=== PATIENT | female | born 1945 | race Caucasian/White ===

== ENCOUNTER 2016-06-10 08:13 | Day surgery (SDC) | payer MEDICARE, OTHER ==
[~2016-06-10] VITALS: Ht 170.2 cm; Wt 86.2 kg
[2016-06-10 09:05] LABS: HEMATOCRIT 49.1 % (36.0-48.0); HEMOGLOBIN 16.4 g/dL (12-16); MCH 31.8 pg (26.0-34.0); MCHC 33.4 g/dL (31.0-37.0); MCV 95.3 fL (80.0-100.0); RBC 5.15 10x6/uL (4.00-5.40); RDW 12.5 % (11.5-14.5); WBC 7.3 10x3/uL (4.8-10.8)
[2016-06-10] MEDS ORDERED: GLUCOPHAGE1000 MG PO (09:16)
[2016-06-10] MEDS ORDERED: PRAVACHOL40 MG PO (09:17)
[2016-06-10] MEDS ORDERED: GLIMEPIRIDE2 MG PO (09:17)
[2016-06-10] MEDS ORDERED: BAYER CHEWABLE81 MG PO (09:18)
[2016-06-10 09:29] VITALS: BP 100/56; Ht 170.2 cm; Wt 86.2 kg
[2016-06-10 09:59] LABS: ANION GAP 17.3 mmol/L (8-16); CALCIUM 9.8 mg/dL (8.5-10.1); CARBON DIOXIDE 21.9 mmol/L (21.0-32.0); CREATININE - SERUM 0.9 mg/dL (0.6-1.3); POTASSIUM - SERUM 4.2 mmol/L (3.5-5.1)
--- NOTE | 2016-06-10 11:30 | NUR ---
PATIENT LEFT ON STRETCHER FOR PROCEDURE, DARK AREAS NOTED ON BUTTOCKS WITH SOME SMALL SCRATCY SCABBY AREA ON LEFT BUTTOCK, ROULA.
--- NOTE | 2016-06-10 14:46 | NUR ---
1400-PT. ESCORTED VIA WHEELCHAIR TO PERSONAL CAR, LEFT WITH FAMILY DRIVING.
--- NOTE | 2016-07-27 10:17 | HP ---
PATIENT: ADILSON MOSQUEDA MEDICAL RECORD: [id number] ACCOUNT: [id number] LOCATION:[facility] : 43 ADMISSION DATE: 06/10/16 HISTORY AND PHYSICAL EXAMINATION CHIEF COMPLAINT: Polyp. I have personally reviewed the endoscopic photos. I have personally reviewed the endoscopic report. I do not have a pathology report. We are unable to obtain one. The worrisome polyp is a sessile polyp on a fold that is 4-5 cm in length and wraps around the fold. Cold biopsies were obtained. The area was then tattooed. It was felt to be too large for routine endoscopic removal. I am going to plan for a polypectomy utilizing the argon plasma rose grower. The risks, possible complications and alternatives to procedure were explained to the patient. She elects to proceed. Unfortunately, although she was ready to have this procedure done, it escaped everybody that she had not signed her consent form prior to the procedure. The nurse went out and talked to family and they signed the form. SOCIAL HISTORY: She is a smoker. I have advised her to quit smoking. PAST MEDICAL HISTORY AND PAST SURGICAL HISTORY: Sleep apnea, not on CPAP, noninsulin-dependent diabetes mellitus, colon polyp, and hyperlipidemia. HOME MEDICATIONS: Aspirin, Amaryl, Glucophage, and Pravachol. ALLERGIES: No known drug allergies. REVIEW OF SYSTEMS: Negative for coronary artery disease or hypertension. Negative for CVA or seizures. Negative for renal disease or hepatitis. The review of systems is negative other than as is described above. PHYSICAL EXAMINATION: GENERAL: The patient does not appear acutely ill. She does not appear chronically ill. VITAL SIGNS: Reviewed. HEAD: External ears appear normal. EYES: Extraocular movements are intact. NECK: Trachea is midline. CHEST: No intercostal retractions. PULMONARY: Nonlabored, no stridor. ABDOMEN: No peritonitis with movement. IMPRESSION: A worrisome polyp of the mid descending colon, complex due to its size and its location. PLAN: Colonoscopy, polypectomy utilizing the argon plasma rose grower. TRANSINT:[id number] Voice Confirmation ID: [id number] DOCUMENT ID: [id number] HISTORY AND PHYSICAL [id number] ADILSON MOSQUEDAGIOVANA HANCOCK MD at 1017 CC: CLAIR KHAN DO and ANTONIO ZAMAN MD [id number] DICTATION DATE: 06/10/16 1222 DEGREASING WHEEL OPERATOR: 06/10/16 1238 [facility] 06/10/16 [address] [address] [place] [address]
--- NOTE | 2016-07-27 10:17 | OP ---
PATIENT NAME: ADILSON MOSQUEDA MEDICAL RECORD: [id number] :43 LOCATION:D.OPS ADMISSION DATE: SURGEON: GIOVANA CROSS MD DATE OF OPERATION: 06/10/2016 PREOPERATIVE DIAGNOSIS: Right-sided colon polyp, 4-5 cm, complex due to its size and its location. POSTOPERATIVE DIAGNOSIS: Right-sided colon polyp, 4-5 cm, complex due to its size and its location. PROCEDURES: 1. Total colonoscopy to cecum. 2. Snare polypectomy and then multiple cold biopsies were obtained of the residual polypoid tissue. I then ablated any residual polypoid tissue with the argon plasma driver trainee. Placement of 4 endoscopic clips for vascular hemostasis as well as to close a submucosal defect. OPERATIVE COURSE: The patient was conveyed to the operating room electively on 06/10/2016. General anesthesia was induced by the anesthesia staff. The patient was placed in the Flores position. A digital rectal examination was performed. The colonoscope was inserted through the anus. It was easily advanced to the cecum. The prep was adequate. The pullback was greater than a 14-minute pullback. I dragged the folds. I irrigated and aspirated extensively. In the mid ascending colon, the polyp was easily identifiable. I advanced a snare wrapped it around the polyp and performed a snare polypectomy. This removed about 90% of the polyp and the remaining 10% of the polypoid tissue at the base. I performed cold endoscopic biopsy. The patient was left with not a full thickness defect, but the mucosa had been removed and perhaps some of the submucosa. For this reason, the area was weak. There was also bleeding to some degree. I ablated the remaining polypoid tissue with the argon plasma driver trainee. I then began to lay out down a row of clips to close this defect, which is at risk for developing into a full thickness perforation. I tried to lay down a row of 7 clips. Unfortunately, because it was on fold, it was difficult to obtain some purchase with some these clips. So a total of 4 of these clips were placed and this is largely closed the defect that I described. An endoscopic retrieval device was advanced. I grasped the polyp. It was then withdrawn slowly out through the anus. Upon withdrawal, I noted no other polypoid lesions. The patient was then extubated and conveyed to post-anesthesia care unit, where she was in stable condition. She going to be dismissed home while on Flagyl as she is at a risk for a post-polypectomy syndrome. I will see her in the office in 2-3 weeks. TRANSINT:[id number] Voice Confirmation ID: [id number] DOCUMENT ID: [id number] OPERATIVE REPORT [id number] ADILSON MOSQUEDA, GIOVANA LOPEZ at 1017 CC: [id number] DICTATION DATE: 06/10/16 1226 INSPECTING ENGINEER: 06/10/16 1319 [facility] 06/10/16 [id number] [place] [address]
== END 2016-06-10 14:00 | disposition home or self-care (01) ==
LOC: D.OPS 08:13 → D.PAN 11:00 → D.OPS 11:00
PROVIDERS: Anesthesiology
DX: D12.2 Benign neoplasm of ascending colon (principal)

== ENCOUNTER 2017-07-07 05:28 | Day surgery (SDC) | payer MEDICARE, OTHER ==
--- NOTE | ~2017-07-07 | OP ---
PATIENT NAME: ADILSON MOSQUEDA MEDICAL RECORD: [id number] :43 LOCATION:D.OPS ADMISSION DATE: SURGEON: GIOVANA CROSS MD DATE OF OPERATION: 07/07/2017 PREOPERATIVE DIAGNOSIS: Complex colon polyp. POSTOPERATIVE DIAGNOSIS: Complex colon polyp. PROCEDURES: 1. Total colonoscopy to cecum. 2. Epinephrine injection with sclerotherapy needle for post-procedure hemostasis. 3. Piecemeal snare polypectomy. 4. Ablation of the polypoid base with the argon plasma process area supervisor. SURGEON: Giovana Cross MD PSYCHIATRIC NURSE: None. BLOOD LOSS: Minimal. ANESTHESIA: General. COMPLICATIONS: None. The risks, possible complications, and alternatives to procedure were explained to the patient. She elects to proceed. OPERATIVE COURSE: The patient was conveyed to the operating room electively on 07/07/2017. General anesthesia was induced by the anesthesia staff. The patient was placed in the Flores position. A digital rectal examination was performed. The colonoscope was inserted through the anus. It was easily advanced to the cecum. Upon withdrawal, I irrigated and aspirated extensively. The prep was adequate. I dragged the folds. The pullback was greater than an 14-minute pullback. The polyp was identified. Multiple cold endoscopic biopsies were performed. I encountered some bleeding. I advanced a sclerotherapy needle. I then injected submucosally a total of 6 cc of epinephrine to provide a lift for the polyp away from the colonic wall and also to ensure post-procedural hemostasis. I took a snare. A piecemeal snare polypectomy was performed utilizing the coagulation setting and then the cut setting. I then ablated the polypoid base with the argon plasma process area supervisor utilizing the right colon setting in the forced mode. I then grasped the portions of the polyp with an endoscopic retrieval net. I then withdrew the colonoscope slowly with the polyp contained within the net. The colonoscope was then withdrawn under direct vision. I will see the patient in my office in 2-3 weeks. I will plan for her next colonoscopy with the argon plasma process area supervisor to take place in 1 year. TRANSINT:[id number] Voice Confirmation ID: [id number] DOCUMENT ID: [id number] OPERATIVE REPORT [id number] ADILSON MOSQUEDA GIOVANA CROSS MD at 1019 CC: RUBIN MOORE and MANJU BLOOM DO [id number] DICTATION DATE: 07/20/17 1443 MANAGER ACCOUNT MANAGEMENT: 07/20/[address] [facility] 07/07/17 [address] [place] [address]
--- NOTE | ~2017-07-07 | HP ---
PATIENT: ADILSON MOSQUEDA MEDICAL RECORD: [id number] ACCOUNT: [id number] LOCATION:[facility] : 43 ADMISSION DATE: 07/07/17 HISTORY AND PHYSICAL EXAMINATION HISTORY OF PRESENT ILLNESS: The patient underwent an endoscopic resection of a complex colon polyp in the past. She is here to undergo a surveillance colonoscopy and likely there is going to be some regrowth of this polyp, so we will perform polypectomy utilizing the argon plasma central services tech, which is a radiofrequency type of ablation of a benign colonic process. PAST MEDICAL HISTORY: Have been reviewed. PAST SURGICAL HISTORY: Have been reviewed. CURRENT MEDICATIONS: Have been reviewed. ALLERGIES: Have been reviewed. PHYSICAL EXAMINATION: GENERAL: The patient does not appear acutely ill. She does not appear chronically ill. VITAL SIGNS: Reviewed. EARS: External ears appear normal. She is very hard of hearing. EYES: Extraocular movements are intact. NECK: Trachea is midline. CHEST: No intercostal retractions. PULMONARY: Nonlabored, no stridor. ABDOMEN: Nontender. NEUROLOGIC: There is some evidence of loss of higher cortical function. IMPRESSION: History of complex colon polyp, necessitated clips during the patient's last polypectomy. PLAN: Colonoscopy and polypectomy. TRANSINT:[id number] Voice Confirmation ID: [id number] DOCUMENT ID: [id number] GIOVANA CROSS MD at 1034 CC: CLAIR KHAN DO and ANTONIO ZAMAN MD [id number] DICTATION DATE: 07/07/17 1023 MANAGER UROLOGY: 07/07/17 1055 [facility] 07/07/17 [facility] [address] [place] [address]
[~2017-07-07 05:28] MED LIST: BAYER CHEWABLE81 MG PO; GLIMEPIRIDE2 MG PO; GLUCOPHAGE1000 MG PO; PRAVACHOL40 MG PO
[2017-07-07] MEDS ORDERED: LISINOPRIL2.5 MG PO (06:16)
[2017-07-07] MEDS ORDERED: ACTOS15 MG PO (06:17)
[2017-07-07] MEDS ORDERED: CENTRUM SILVER1 TA1 PO (06:18)
[2017-07-07 06:22] LABS: ANION GAP 19.1 mmol/L (8-16); CALCIUM 9.2 mg/dL (8.5-10.1); CARBON DIOXIDE 20.7 mmol/L (21.0-32.0); CREATININE - SERUM 1.1 mg/dL (0.6-1.3); POTASSIUM - SERUM 3.8 mmol/L (3.5-5.1)
[2017-07-07 06:23] LABS: HEMATOCRIT 45.5 % (36.0-48.0); HEMOGLOBIN 15.9 g/dL (12-16); MCH 33.3 pg (26.0-34.0); MCHC 34.9 g/dL (31.0-37.0); MCV 95.4 fL (80.0-100.0); MEAN PLATELET VOLUME 10.7 fL (7.4-10.4); RBC 4.77 10x6/uL (4.00-5.40); RDW 11.8 % (11.5-14.5); WBC 7.8 10x3/uL (4.8-10.8)
[2017-07-07 06:28] VITALS: BP 100/71; BMI 28.1
== END 2017-07-07 12:00 | disposition home or self-care (01) ==
LOC: D.OPS 05:28 → D.PAN 08:00 → D.OPS 08:00
PROVIDERS: Anesthesiology
DX: K63.5 Polyp of colon (principal); F17.200 Nicotine dependence, unspecified, uncomplicated; I10 Essential (primary) hypertension; E11.9 Type 2 diabetes mellitus without complications; Z01.812 Encounter for preprocedural laboratory examination

== ENCOUNTER 2019-02-26 05:56 | Day surgery (SDC) | payer MEDICARE, BC ==
[~2019-02-26] VITALS: Ht 172.7 cm; Wt 94.1 kg
[~2019-02-26 05:56] MED LIST changes: +CENTRUM SILVER1 TA1 PO; +LISINOPRIL2.5 MG PO; +PIOGLITAZONE15 MG PO
[2019-02-26 06:18] LABS: HEMATOCRIT 47.4 % (36.0-48.0); HEMOGLOBIN 15.8 g/dL (12-16); MCH 32.8 pg (26.0-34.0); MCHC 33.3 g/dL (31.0-37.0); MCV 98.3 fL (80.0-100.0); MEAN PLATELET VOLUME 9.8 fL (7.4-10.4); RBC 4.82 10x6/uL (4.00-5.40); RDW 12.6 % (11.5-14.5); WBC 7.2 10x3/uL (4.8-10.8)
[2019-02-26 06:34] LABS: ANION GAP 14.3 mmol/L (8-16); CALCIUM 8.8 mg/dL (8.5-10.1); CARBON DIOXIDE 26.7 mmol/L (21.0-32.0); CREATININE - SERUM 0.8 mg/dL (0.6-1.3)
[2019-02-26] MEDS ORDERED: GLIMEPIRIDE4 MG PO (06:51)
[2019-02-26] MEDS ORDERED: CO Q-10200 MG (06:52)
[2019-02-26] MEDS ORDERED: FARXIGA10 MG PO (06:53)
[2019-02-26] MEDS ORDERED: BENADRYL25 MG PO (06:54)
[2019-02-26 07:18] VITALS: BP 109/65; Ht 172.7 cm; Wt 94.1 kg
--- NOTE | 2019-02-26 10:47 | NUR ---
X-RAY RESULTS: NO FREE AIR
--- NOTE | 2019-02-26 10:47 | NUR ---
DC INSTRUCTIONS GIVEN TO PT/FAMILY. STATE UNDERSTANDING. DC'D IV CATH FULLY INTACT. ABLE TO TOLERATE FULL LIQUID DIET.
--- NOTE | 2019-02-26 11:20 | HP ---
PATIENT: ADILSON MOSQUEDA MEDICAL RECORD: [id number] ACCOUNT: [id number] LOCATION:[facility] : 43 ADMISSION DATE: 02/26/19 PCP: CLAIR KHAN DO HISTORY AND PHYSICAL EXAMINATION CHIEF COMPLAINT: History of complex colon polyp. HISTORY OF PRESENT ILLNESS: The patient has undergone history of endoscopic resection of a complex colon polyp several times in the past. She is here to undergo surveillance colonoscopy. It is likely that there is going to be some regrowth of the polyp, so we will perform polypectomy utilizing argon plasma summer child caregiver, perhaps endoscopic mucosal resection. It has been over a year since I last saw her. The patient had a complex colon polyp, which was treated with a piecemeal snare polypectomy. 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 The patient had no rectal bleeding. No abdominal pain. She is very hard of hearing. HOME MEDICATIONS: Please see the nursing list. ALLERGIES: No known drug allergies. SOCIAL HISTORY: She is a smoker. PAST MEDICAL AND SURGICAL HISTORY: Sleep apnea, hypertension, type 2 diabetes mellitus, lower extremity edema, cataract surgery, history of hysterectomy, history of colonoscopy, history of colon polyps, history of removal of a lipoma, history of laparoscopic cholecystectomy. PHYSICAL EXAMINATION: GENERAL: The patient does not appear acutely ill. She does not appear chronically ill. VITAL SIGNS: Reviewed. EARS: External ears appear normal. EYES: Extraocular movements are intact. NECK: Trachea is midline. CHEST: No intercostal retractions. PULMONARY: Nonlabored, no stridor. The entire examination was performed in the presence of a female nurse. IMPRESSION: History of complex colon polyp of the ascending colon. PLAN: Colonoscopy, polypectomy with possible endoscopic mucosal resection, possible treatment with the argon plasma summer child caregiver. TRANSINT:[id number] Voice Confirmation ID: [id number] DOCUMENT ID: [id number] HISTORY AND PHYSICAL [id number] ADILSON MOSQUEDA GIOVANA DYSON MD at 1120 CC: CLAIR KHAN DO [id number] DICTATION DATE: 02/26/19 0906 ATTENDANT ARCADE: 02/26/19 1115 [facility] [address] [place] [address]
--- NOTE | 2019-02-26 11:29 | NUR ---
PT LEFT UNIT VIA WC AT 111
--- NOTE | 2019-02-26 17:43 | OP ---
PATIENT NAME: ADILSON MOSQUEDA MEDICAL RECORD: [id number] :43 LOCATION:D.OPS ADMISSION DATE: SURGEON: GIOVANA CROSS MD DATE OF OPERATION: 02/26/2019 PREOPERATIVE DIAGNOSIS: History of complex ascending colon polyp with regrowth. POSTOPERATIVE DIAGNOSES: History of complex ascending colon polyp with regrowth with further regrowth. This polyp was on the ileocecal valve. PROCEDURES: 1. Total colonoscopy to cecum. 2. Submucosal epinephrine injection. 3. Endoscopic mucosal resection, polypectomy. 4. Tattooing of the ileocecal valve. The polyp is on the superior lip of the ileocecal valve. SURGEON: Giovana Cross MD STEEL PLACER: None. BLOOD LOSS: Minimal. ANESTHESIA: IV sedation. COMPLICATIONS: None. It was necessary to have the anesthesia staff present during the procedure to ensure the patient did not run into respiratory problems as she is a significant smoker. ENDOSCOPIC COURSE: The patient was conveyed to the endoscopy suite electively on 02/26/2019. IV sedation was induced by the anesthesia staff. The patient was placed in the Flores position. A digital rectal examination was performed. A colonoscope was inserted through the anus. It was easily advanced to the cecum. The prep was excellent. A retroflexed view was obtained in the cecum. The polyp was easily identified. I advanced the sclerotherapy needle. A submucosal injection of epinephrine was performed for a post-procedural hemostasis. I then injected Eleview into the submucosa of the ileocecal valve. This was in preparation for the endoscopic mucosal resection, polypectomy. I then advanced a snare. A piecemeal snare polypectomy was performed. This completed the endoscopic mucosal resection. Some additional polypoid tissue was grasped with a cold biopsy forceps. I then suctioned up the portion of the polyp into a polyp trap. I then advanced the sclerotherapy needle again. A submucosal injection of Lizette ink was performed to tattoo the area. The argon plasma skip tender was then advanced. Utilizing the right colon setting in the forced mode, I then ablated any residual polypoid tissue. The endoscope was then withdrawn under direct vision. A combination of normal imaging and narrow band imaging were utilized. I irrigated and aspirated extensively. The pullback was greater than an 18-minute pullback. A retroflexed view was obtained in the rectum. I then unretroflexed the scope and OPERATIVE REPORT [id number] JAYLINADILSON RADHA removed it under direct vision. I will see the patient back in my office in 2-3 weeks. I will plan for her next colonoscopy to take place in 2 years. TRANSINT:[id number] Voice Confirmation ID: [id number] DOCUMENT ID: [id number] GIOVANA CROSS MD at 1743 CC: CLAIR KHAN DO [id number] DICTATION DATE: 02/26/19 1002 QUARTER BACKER: 02/26/19 1224 [facility] 02/26/19 [facility] [address] [place] [address]
== END 2019-02-26 11:19 | disposition home or self-care (01) ==
LOC: D.OPS 05:56
PROVIDERS: Anesthesiology; ATTEND Surgery
DX: K63.5 Polyp of colon (principal); Z86.010 Personal history of colon polyps